=== PATIENT | male | born 1985 | race Caucasian/White ===

== ENCOUNTER 2025-01-17 23:06 | Emergency (ER) | payer MEDICAID ==
[~2025-01-17] VITALS: Ht 172.7 cm; Wt 109.0 kg
[2025-01-17 23:16] VITALS: TEMP 36.8; O2SAT 98
[2025-01-18] MEDS ORDERED: ACYC-58 MT (00:48)
[2025-01-18] MEDS ORDERED: GLYC30DR4 RIGHTEYE (00:48)
[2025-01-18] MEDS ORDERED: P20 MT (00:48)
[2025-01-18 01:06] VITALS: BP 118/71; PULSE 82; RESP 16; O2SAT 98
== END 2025-01-18 01:08 | disposition home or self-care (01) ==
LOC: ER 23:41
DX: G51.0 Bell's palsy (principal); R20.2 Paresthesia of skin; Z79.899 Other long term (current) drug therapy
CPT/HCPCS: 82962; 99284